=== PATIENT | female | born 1980 | race Two or more races ===

== ENCOUNTER 2017-05-02 14:55 | Emergency (ER) | payer MEDICAID ==
[~2017-05-02] VITALS: Ht 175.3 cm; Wt 170.0 kg
[2017-05-02] MEDS ORDERED: SODIUM CHLORIDE 0.9% 1,000 ML IV ONE (18:17)
[2017-05-02 19:06] LABS: BASOPHILS % 0.4 % (0.0-2.0); EOSINOPHILS % 0.5 % (0.0-5.0); HEMATOCRIT. 36.3 % (36.0-48.0); HEMOGLOBIN. 11.9 g/dL (12.0-16.0); LYMPHOCYTES % 22.2 % (20.0-50.0); MEAN CORPUSCULAR HEMOGLOBIN 25.4 pg (28.0-32.0); MEAN CORPUSCULAR VOLUME 77.8 fL (81.0-99.0); MEAN PLATELET VOLUME 8.6 fl (7.4-10.4); NEUTROPHILS % 69.9 % (40.0-76.0); PLATELET 251 x1000/uL (130-400); RED BLOOD CELL COUNT 4.67 mill/uL (4.2-5.4); RED CELL DISTRIBUTION WIDTH 15.1 % (11.6-14.6)
[2017-05-02 19:12] LABS: CARBON DIOXIDE 26 mEq/L (21-32); CHLORIDE 106 mEq/L (98-107)
[2017-05-02 19:15] LABS: CLARITY URINE CLOUDY (CLEAR); COLOR URINE YELLOW (YELLOW); GLUCOSE URINE NEGATIVE (NEGATIVE); KETONES URINE NEGATIVE (NEGATIVE); LEUKOCYTE ESTERASE URINE 2+ (NEGATIVE); NITRITE URINE NEGATIVE (NEGATIVE); OCCULT BLOOD URINE 3+ (NEGATIVE); PROTEIN URINE NEGATIVE (NEGATIVE); SPECIFIC GRAVITY URINE 1.012 (1.005-1.030); UROBILINOGEN URINE 0.2 E.U./dL (0.2-1.0)
[2017-05-02 19:21] LABS: HCG SCREEN NEGATIVE
[2017-05-02 20:02] VITALS: BP 116/62
== END 2017-05-02 20:02 | disposition home or self-care (01) ==
LOC: ER 14:55
DX: N39.0 Urinary tract infection, site not specified (principal); R19.7 Diarrhea, unspecified
CPT/HCPCS: 36415; 80053; 81001; 83690; 84703; 85025; 96360; 99284; J7030; Z7610